=== PATIENT | female | born 1960 | race Caucasian/White ===

== ENCOUNTER 2018-04-26 13:08 | Emergency (ER) | payer BC, OTHER ==
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
[2018-04-26 15:05] VITALS: BP 114/69
== END 2018-04-26 15:04 | disposition home or self-care (01) ==
LOC: ED 13:08
DX: M54.2 Cervicalgia (principal); R51 Headache; V43.52XA Car driver injured in collision with other type car in traffic accident, initial encounter; Y92.410 Unspecified street and highway as the place of occurrence of the external cause; Z87.820 Personal history of traumatic brain injury
CPT/HCPCS: 70450; 72125; 99282

== ENCOUNTER 2023-09-21 07:30 | Observation (INO) ==
[2024-01-22] MEDS ORDERED: Naloxone 0.4 mg VIAL 0.4 mg/ml 1 ml VIAL IV PRN (13:38)
[2024-01-22] MEDS ORDERED: Ondansetron 4 mg VIAL 2 MG/ML 2 ml VIAL IV PRN (13:38)
[2024-01-22] MEDS ORDERED: NS 0.45% 1000 ml BAG 1,000 ML IV SCH (14:00)
[2024-01-25] MEDS ORDERED: Lidocaine 2% PF 5 ML VIAL ONE ×2 (07:55→12:48)
[2024-01-25] MEDS ORDERED: Propofol 10 MG/ML 20 ML BTL ONE (07:55)
[2024-01-25 08:17] LABS: Rapid COVID-19 Molecular Undetected (Undetected)
[2024-01-25] MEDS ORDERED: ceFAZolin 2 GM PREMIX 2 GM/50 ML BAG ONE (08:36)
[2024-01-25] MEDS ORDERED: Vancomycin 1,000 MG VIAL ONE (09:12)
[2024-01-25] MEDS ORDERED: fentaNYL 250 mcg/5 ml 50 MCG/ML 5 ml VIAL (250 MCG) ONE (09:38)
[2024-01-25] MEDS ORDERED: KETAMINE HCL 10 MG/ML 20 ml VIAL (200 MG) ONE (09:38)
[2024-01-25] MEDS ORDERED: Rocuronium 50 mg VIAL 10 mg/ml 5 ml VIAL (50 mg) ONE (09:38)
[2024-01-25] MEDS ORDERED: fentaNYL 100 mcg/2 ml 50 MCG/ML VIAL ONE ×2 (09:56→15:00)
[2024-01-25] MEDS ORDERED: Midazolam 2 mg/2 ml VIAL 1 mg/ml 2 ml VIAL (2 mg) ONE (09:56)
[2024-01-25] MEDS ORDERED: Ropivacaine 5 MG/ML 20 ML VIAL 0.5% (100 MG) ONE (09:56)
[2024-01-25] MEDS ORDERED: ROPIVACAINE 5 MG/ML 30 ML BTL (0.5%) ONE (09:57)
[2024-01-25] MEDS ORDERED: Tranexamic Acid 1 GM/100ML BAG 2,000 MG/200 ML BAG IV ONE (09:58)
[2024-01-25] MEDS ORDERED: Sevoflurane BOTTLE ONE (11:47)
[2024-01-25] MEDS ORDERED: HYDROmorphone 0.5 MG/0.5 ML SYRINGE ONE ×2 (12:05→13:53)
[2024-01-25] MEDS ORDERED: Dexamethasone IV 4 MG/ML VIAL 1 ml VIAL ONE (12:13)
[2024-01-25] MEDS ORDERED: Ondansetron 4 mg VIAL 2 MG/ML 2 ml VIAL ONE (12:13)
[2024-01-25] MEDS ORDERED: Glycopyrrolate IV 0.2 MG/ML 1 ML VIAL ONE (12:18)
[2024-01-25] MEDS ORDERED: Albuterol HFA INHALER 8 gm MDI INH ONE (14:07)
[2024-01-25] MEDS ORDERED: Morphine 2 MG/ML SYRINGE IV PRN (14:25)
[2024-01-25] MEDS ORDERED: Calcium Carb (TUMS) 500 mg CHEW TAB PO PRN (14:25)
[2024-01-25] MEDS ORDERED: Lactulose 30 ml UDC PO PRN (14:25)
[2024-01-25] MEDS ORDERED: Magnesium Hydroxide LIQ 30 ML UDC PO PRN (14:25)
[2024-01-25] MEDS ORDERED: Levalbuterol 0.63MG/3ML NEB UNIT OF USE INH PRN (14:29)
[2024-01-25] MEDS: fentaNYL 100 mcg/2 ml 50 MCG/ML VIAL IV PRN (15:01)
[2024-01-25] MEDS: Lactated Ringers 1000 ml BAG 1,000 ML IV SCH ×2 (16:42→19:38)
[2024-01-25] MEDS: Ondansetron 4 mg VIAL 2 MG/ML 2 ml VIAL IV PRN (16:57)
[2024-01-25 17:17] LABS: Urine Appearance Clear; Urine Bilirubin Negative (Negative); Urine Blood Negative (Negative); Urine Color Yellow; Urine Glucose Negative (Negative); Urine Ketones Negative (Negative); Urine Nitrite Negative (Negative); Urine Protein Negative (Negative); Urine Specific Gravity 1.005 (1.002-1.030); Urine Urobilinogen Negative (Negative)
[2024-01-25] MEDS: Acetaminophen IV 1 GM/100ML 1,000 MG/100 ML BAG IV ONE (19:37)
[2024-01-25] MEDS: Buffered Lidocaine 1% SYRIN 1 ml INTRADERM ONE (19:37)
[2024-01-25] MEDS: Scopolamine 1 mg/72hr PATCH TRANSDERM ONE (19:38)
[2024-01-25] MEDS ORDERED: ceFAZolin 2 GM in NS PREMIX 2 GM/100 ML BAG IVPB SCH (20:00)
[2024-01-25] MEDS: ceFAZolin 2 GM PREMIX 2 GM/50 ML BAG IV SCH (20:15)
[2024-01-25] MEDS: Magnesium Hydroxide LIQ 30 ML UDC PO SCH (21:11)
[2024-01-26] MEDS: Ondansetron ODT 4 mg TAB 4 MG TAB PO PRN (04:53)
[2024-01-26 06:15] LABS: Hematocrit 35.5 % (35-45); Hemoglobin 11.9 g/dL (11.5-14.3); Mean Platelet Volume 7.2 fL (7.5-11.2); Platelet Count 331 10^3/uL (150-450)
[2024-01-26 06:35] LABS: Calcium 8.5 mg/dL (8.6-10.3); Creatinine, Serum 0.72 mg/dL (0.51-0.95); Potassium 4.2 mmol/L (3.5-5.0); eGFR CKD-EPI 95.1 (>60)
[2024-01-26] MEDS: Vitamin THERAPEUTIC TAB PO SCH (08:39)
[2024-01-26] MEDS: Iohexol 350 (CONTRAST) 500 ML MDV IV ONE (15:07)
[2024-01-26] MEDS: Sulfur Hexaflouride MICROSPHR 25 MG VIAL IV ONE (22:37)
[2024-01-27 00:11] LABS: Urine Appearance Clear; Urine Bilirubin Negative (Negative); Urine Blood Negative (Negative); Urine Color Light-Yellow; Urine Glucose Negative (Negative); Urine Ketones Negative (Negative); Urine Nitrite Negative (Negative); Urine Protein Negative (Negative); Urine Specific Gravity 1.016 (1.002-1.030); Urine Urobilinogen Negative (Negative)
[2024-01-27 06:29] LABS: Hematocrit 36.8 % (35-45); Hemoglobin 12.2 g/dL (11.5-14.3); Mean Platelet Volume 7.4 fL (7.5-11.2); Platelet Count 320 10^3/uL (150-450)
[2024-01-27] MEDS ORDERED: Sulfur Hexaflouride MICROSPHR 25 MG VIAL ONE (10:12)
[2024-01-27 13:51] VITALS: BP 140/78
[2024-01-27] MEDS: Albuterol HFA INHALER 8 gm MDI INH PRN (14:53)
[2024-01-27 16:18] LABS: Calcium 8.7 mg/dL (8.6-10.3); Creatinine, Serum 0.66 mg/dL (0.51-0.95); Magnesium 2.4 mg/dL (1.9-2.7); Potassium 4.2 mmol/L (3.5-5.0); eGFR CKD-EPI 99.7 (>60)
== END 2024-01-27 18:15 | disposition home or self-care (01) ==
LOC: INTOOBSV 01-25 06:56 → AA 01-25 06:56 → EDSTATUS 01-25 09:30 → SSU 01-25 14:25
PROVIDERS: ADMIT Orthopaedic Surgery; ATTEND Orthopaedic Surgery